=== PATIENT | male | born 1985 | race Caucasian/White ===

== ENCOUNTER 2017-03-11 17:38 | Emergency (ER) | payer OTHER, MEDICAID ==
[~2017-03-11] VITALS: Ht 193 cm; Wt 90.7 kg
[2017-03-11 17:50] VITALS: BP 141/79
--- NOTE | 2017-03-11 19:04 | NUR ---
Patient ambulated to bed 4. RN evaluating patient at bedside.
--- NOTE | 2017-03-11 19:07 | NUR ---
31 Y/O M W/C/O PAIN TO R LEG SWELLING,REDNESS AND DISCHARGE X 1 MTH. PT ALSO STATES HAS RUN A FEVER AND CHILLS X YESTERDAY. NO S/S OF DISTRESS NOTED. ER MD WILL BE NOTIFIED.
--- NOTE | 2017-03-11 19:28 | NUR ---
Dr. Castellanos evaluating patient at bedside.
[2017-03-11] MEDS ORDERED: CLINDAMYCIN 600 MG/4 ML VIAL IM ONE (19:35)
[2017-03-11] MEDS ORDERED: HYDROcodone/APAP 10/325 MG 1 TAB TAB PO ONE (19:35)
--- NOTE | 2017-03-11 20:35 | NUR ---
X-Ray at bedside.
[2017-03-11 21:43] VITALS: BP 138/87
--- NOTE | 2017-03-11 21:43 | NUR ---
Patient discharged with v/s stable. Written and verbal after care instructions given and explained. Patient alert, oriented and verbalized understanding of instructions. Ambulatory with steady gait. All questions addressed prior to discharge. ID band removed. Patient advised to follow TO THIS ER IN 2 DAYS. Rx of KEFLEX, NORCO, BACTRIM AND MOTRIN given. Patient educated on indication of medication including possible reaction and side effects. Opportunity to ask questions provided and answered.
== END 2017-03-11 21:43 | disposition home or self-care (01) ==
LOC: MED 17:38
DX: L03.115 Cellulitis of right lower limb (principal)
CPT/HCPCS: 36415; 73590; 85025; 87040; 90471; 90715; 96372; 99284; J3490; Q0092

== ENCOUNTER 2017-03-12 13:25 | Emergency (ER) | payer OTHER, MEDICAID ==
[~2017-03-12] VITALS: Ht 193 cm; Wt 90.7 kg
[2017-03-12 14:24] VITALS: BP 136/81
--- NOTE | 2017-03-12 15:02 | NUR ---
Pt taken to bed 6.
--- NOTE | 2017-03-12 15:03 | NUR ---
31/M [facility] FOR RECHECK OF RIGHT LEG CELLULITIS. PT SEEN IN ER LAST NOC. DENIES N/V/D; AAOX4 WITH UNSTEADY GAIT; LUNGS CLEAR BL; HR EVEN AND REGULAR; PT DENIES ANY FEVER, CP, SOB, OR COUGH AT THIS TIME; PATIENT STATES PAIN OF 8/10 AT THIS TIME; VSS; PATIENT POSITIONED FOR COMFORT; HOB ELEVATED; BEDRAILS UP X2; BED DOWN. ER MD MADE AWARE OF PT STATUS.
--- NOTE | 2017-03-12 15:05 | NUR ---
Patient being evaluated by Dr. Argueta at bedside.
[2017-03-12 15:44] LABS: BASOPHILS # (AUTO) 0.1 K/uL (0.00-0.22); BASOPHILS % (AUTO) 0.9 % (0.0-2.0); EOSINOPHILS # (AUTO) 0.7 K/uL (0-0.4); EOSINOPHILS % (AUTO) 6.1 % (0.0-4.0); HEMATOCRIT 37.7 % (36-52); HEMOGLOBIN 12.6 g/dL (12.0-18.0); LYMPHOCYTES % (AUTO) 9.6 % (20.5-51.1); MEAN CORPUSCULAR HEMOGLOBIN 29 pg (27-31); MEAN CORPUSCULAR HGB CONC 33 g/dL (33-37); MEAN CORPUSCULAR VOLUME 88 fL (80-94); MONOCYTES # (AUTO) 0.7 K/uL (0.8-1.0); NEUTROPHILS # (AUTO) 8.4 K/uL (1.8-7.7); NEUTROPHILS % (AUTO) 77.4 % (42.2-75.2); PLATELET COUNT (AUTO) 110 K/uL (140-450); RED CELL DISTRIBUTION WIDTH 13.8 % (11.6-13.7); WHITE BLOOD COUNT (AUTO) 10.9 K/uL (4.8-10.8)
--- NOTE | 2017-03-12 16:04 | NUR ---
Patient discharged with v/s stable. Written and verbal after care instructions given and explained. Patient verbalized understanding. Ambulatory with steady gait. All questions addressed prior to discharge. Advised to follow up with PMD.
[2017-03-12 16:05] VITALS: BP 136/81
== END 2017-03-12 16:04 | disposition home or self-care (01) ==
LOC: MED 13:25
DX: L03.115 Cellulitis of right lower limb (principal)
CPT/HCPCS: 36415; 85025; 99283

== ENCOUNTER 2017-03-20 22:39 | Emergency (ER) | payer OTHER, MEDICAID ==
[~2017-03-20] VITALS: Ht 190.5 cm; Wt 99.1 kg
[2017-03-20 22:52] VITALS: BP 125/81
[2017-03-21 00:38] LABS: BASOPHILS # (AUTO) 0.1 K/uL (0.00-0.22); EOSINOPHILS # (AUTO) 0.4 K/uL (0-0.4); HEMOGLOBIN 14.4 g/dL (12.0-18.0); MONOCYTES # (AUTO) 0.7 K/uL (0.8-1.0); NEUTROPHILS # (AUTO) 5.1 K/uL (1.8-7.7)
[2017-03-21 00:46] LABS: BASOPHILS % (AUTO) 0.8 % (0.0-2.0); EOSINOPHILS % (AUTO) 5.2 % (0.0-4.0); HEMATOCRIT 44.4 % (36-52); LYMPHOCYTES # (AUTO) 1.6 K/uL (2.0-11.5); LYMPHOCYTES % (AUTO) 20.6 % (20.5-51.1); MEAN CORPUSCULAR HEMOGLOBIN 29 pg (27-31); MEAN CORPUSCULAR HGB CONC 32 g/dL (33-37); MEAN CORPUSCULAR VOLUME 88 fL (80-94); MONOCYTES % (AUTO) 8.3 % (1.7-9.3); NEUTROPHILS % (AUTO) 65.1 % (42.2-75.2); PLATELET COUNT (AUTO) 230 K/uL (140-450); RED BLOOD CELL COUNT(AUTO) 5.04 MIL/uL (4.20-6.10); RED CELL DISTRIBUTION WIDTH 13.7 % (11.6-13.7); WHITE BLOOD COUNT (AUTO) 7.9 K/uL (4.8-10.8)
[2017-03-21 00:52] LABS: ANION GAP 11.1 (8-16); CALCIUM 9.5 mg/dL (8.5-10.1); CARBON DIOXIDE 32.4 mmol/L (21-32); POTASSIUM 4.5 mmol/L (3.5-5.1)
[2017-03-21 00:58] LABS: ALBUMIN 3.8 g/dL (3.4-5.0); TOTAL BILIRUBIN 0.4 mg/dL (0.0-1.0); TOTAL PROTEIN, SERUM 8.1 g/dL (6.4-8.2)
[2017-03-21 01:00] LABS: INR 1.1 (0.8-1.2); PARTIAL THROMBOPLASTIN TIME 27.4 secs (22-35.6); PROTHROMBIN TIME 10.2 secs (10.8-13.4)
--- NOTE | 2017-03-21 01:58 | NUR ---
TO ER BED 3
--- NOTE | 2017-03-21 02:02 | NUR ---
31/M PRESENT TO ER C/O RT LEG PAIN x 2 DAYS. PT STATES HE HAS PRIOR INJURY TO LEG. POS REDNESS AND SWELLING TO RT LEG AND THIGH. PAIN 9/10 ITCHY DISCOMFORT NON-RADIATING. DENIES INJURY OR TRAUMA. PT STATES MED HX: RT LEG CELLULITIS ONE WEEK AGO. DENIES N/V/D; SKIN IS PINK/WARM/DRY; AAOX4 WITH EVEN AND STEADY GAIT; LUNGS CLEAR BL; HR EVEN AND REGULAR; PT DENIES ANY FEVER, CP, SOB, OR COUGH AT THIS TIME; VSS; PATIENT POSITIONED FOR COMFORT; HOB ELEVATED; BEDRAILS UP X2; BED DOWN. ER MD MADE AWARE OF PT STATUS.
--- NOTE | 2017-03-21 02:06 | NUR ---
Patient being evaluated by physician at bedside.
[2017-03-21] MEDS ORDERED: CLINDAMYCIN 150 MG CAP PO ONE (02:10)
[2017-03-21 02:29] VITALS: BP 122/88
--- NOTE | 2017-03-21 02:30 | NUR ---
Patient discharged with v/s stable. Written and verbal after care instructions given and explained. Patient alert, oriented and verbalized understanding of instructions. Ambulatory with steady gait. All questions addressed prior to discharge. ID band removed. Patient advised to follow up with PMD. Rx of BENADRYL ALLERGY AND CLINDAMYCIN HYDROCHLORIDE given. Patient educated on indication of medication including possible reaction and side effects. Opportunity to ask questions provided and answered.
== END 2017-03-21 02:29 | disposition home or self-care (01) ==
LOC: MED 22:39
DX: L03.115 Cellulitis of right lower limb (principal); R03.0 Elevated blood-pressure reading, without diagnosis of hypertension
CPT/HCPCS: 36415; 80053; 85025; 85610; 85730; 99284